=== PATIENT | male | born 1970 ===

== ENCOUNTER 2023-05-18 06:28 | Day surgery (SDC) | payer BC ==
[~2023-05-18 06:28] MED LIST: Dextrose 5%-0.45% NaCl 1,000 ML IV SCH
[2023-05-18] MEDS ORDERED: fentaNYL 100 MCG/2 ML SDV ONE (06:51)
[2023-05-18] MEDS ORDERED: Midazolam 1 MG/ML 2 ML SDV ONE (06:51)
[2023-05-18] MEDS ORDERED: fentaNYL 100 MCG/2 ML SDV IV ONE ×5 (07:17→07:34)
[2023-05-18] MEDS ORDERED: Midazolam 1 MG/ML 2 ML SDV IV ONE ×6 (07:18→07:24)
[2023-05-18 09:24] VITALS: BP 108/75; PULSE 54
== END 2023-05-18 09:30 | disposition home or self-care (01) ==
LOC: DL.ENDO 06:28
PROVIDERS: ATTEND Internal Medicine Gastroenterology
DX: Z12.11 Encounter for screening for malignant neoplasm of colon (principal); I10 Essential (primary) hypertension; E78.00 Pure hypercholesterolemia, unspecified; Z88.0 Allergy status to penicillin
CPT/HCPCS: 45378; J2250; J3010; J7042